=== PATIENT | female | born 1955 ===

== ENCOUNTER 2017-12-06 13:58 | Observation (INO) | payer BC ==
[2017-12-06 14:32] VITALS: RESP 18
--- NOTE | 2017-12-06 15:36 | ED PDOC ---
HPI: Abdomen Time Seen by Provider: 12/06/17 14:47 Chief Complaint (Nursing): Abdominal Pain Additional Complaint(s): 62 YO F w/ PMH of kidney stones presents to the ED with right flank pain. Patient was seen in [place] ER and had a CT abdomen and pelvis preformed which showed right sided hydronephrosis with a 6mm stone. She was not given a strainer on discharge. She followed up with Dr. Hugo outpatient and he provided her with a stainer and advised her to come to ER if symptoms are persistent or worsening. PMH: Kidney stones one year ago PSH: None Allergy: NKDA FH: None Past Medical History Reviewed: Historical Data, Nursing Documentation, Vital Signs Vital Signs: Last Vital Signs Temp 98.1 F 12/06/17 14:28 Pulse 86 12/06/17 14:28 Resp 18 12/06/17 14:28 BP 138/80 12/06/17 14:28 Pulse Ox 99 12/06/17 18:16 - Medical History PMH: Kidney Stones - Surgical History Surgical History: No Surg Hx - Family History Family History: States: No Known Family Hx - Home Medications Home Medications: Ambulatory Orders Medication Instructions Recorded Amoxicillin/Clavulanate [Augmentin 1 tab PO BID 12/06/17 875 MG-125 MG Tab] Tamsulosin [Flomax] 0.4 mg PO DAILY 12/06/17 oxyCODONE/Acetaminophen [Percocet 1 tab PO Q6 PRN 12/06/17 5/325 mg Tab] - Allergies Allergies/Adverse Reactions: Allergies Allergy/AdvReac Type Severity Reaction Status Date / Time No Known Allergies Allergy Verified 12/06/17 14:28 Review of Systems ROS Statement: Except As Marked, All Systems Reviewed And Found Negative Physical Exam - Reviewed Nursing Documentation Reviewed: Yes Vital Signs Reviewed: Yes - Physical Exam Appears: Positive for: No Acute Distress Head Exam: Positive for: NORMAL INSPECTION Skin: Positive for: Warm, Dry ENT: Positive for: Normal ENT Inspection Neck: Positive for: Normal Cardiovascular/Chest: Positive for: Regular Rate, Rhythm Respiratory: Positive for: Normal Breath Sounds. Negative for: Rales, Rhonchi, Wheezing Gastrointestinal/Abdominal: Positive for: Normal Exam, Bowel Sounds, Soft Back: Positive for: R CVA Tenderness Extremity: Negative for: Tenderness - Laboratory Results Result Diagrams: 12/06/17 15:25 12/06/17 15:25 - ECG O2 Sat by Pulse Oximetry: 99 Medical Decision Making Medical Decision Making: CBC CMP PT/INR Chest X ray - Spoke with Dr Jason Hugo:Will order KUB bladder and call him with the results. - CT abdomen shows severe hydronephrosis with stone 4 x 5 mm - Patient is to remain NPO and is scheduled for surgery today at [address] Villegas Disposition - Clinical Impression Clinical Impression: Urolithiasis, Hydronephrosis - Patient ED Disposition Is Patient to be Admitted: Yes - Disposition Disposition: Transfer of Care Disposition Time: 18:26 Condition: STABLE Print Language: SINHALA - POA Present On Arrival: None
[2017-12-06 15:38] LABS: BASO # 0.1 K/uL (0.0-0.2); BASO % 0.5 % (0.0-2.0); EOS # 0.1 K/uL (0.0-0.7); EOS % 0.6 % (0.0-4.0); HEMOGLOBIN 11.6 g/dL (12.0-16.0); LYMPH # 1.1 K/uL (1.0-4.3); LYMPH % 11.5 % (20.0-40.0); MEAN CELL VOLUME 88.2 fl (81.0-99.0); MEAN CORPUSCULAR HEMOGLOBIN 29.7 pg (27.0-31.0); MEAN CORPUSCULAR HGB CONC 33.7 g/dL (33.0-37.0); MEAN PLATELET VOLUME 7.4 fl (7.2-11.7); MONO # 0.5 K/uL (0.0-0.8); MONO % 5.2 % (0.0-10.0); NEUT # 8.2 K/uL (1.8-7.0); NEUT % 82.2 % (50.0-75.0); RBC 3.91 Mil/uL (3.80-5.20)
[2017-12-06 15:49] LABS: PROTHROMBIN TIME 11.5 Seconds (9.8-13.1)
[2017-12-06 15:50] LABS: ALB/GLOB RATIO 1.2 (1.0-2.1); ALBUMIN 3.9 g/dL (3.5-5.0); ALT/SGPT 74 U/L (9-52); AST/SGOT 48 U/L (14-36); BLOOD UREA NITROGEN 8 mg/dl (7-17); CALCIUM 10.5 mg/dL (8.4-10.2); GFR AFRICAN-AMERICAN > 60; GFR NON-AFRICAN AMERICAN > 60
--- NOTE | 2017-12-06 15:50 | ED PDOC ---
- Laboratory Results Result Diagrams: 12/06/17 15:25 12/06/17 15:25 - ECG O2 Sat by Pulse Oximetry: 99 Pulse Ox Interpretation: Normal - CT Scan/US ct Other Rad Studies (CT/US): Read By Radiologist Other Rad Interpretation: stone with obstruction - Progress ED Course And Treament: 1500: Stable. AAOx3. Took over care from Dr. Castañeda. Fu on Dr. Dailey. Pt. with renal stone. 1545: Dr. Dailey wants a KUB. 1614: Stable. AAOx3. Dr. Dailey will admit and take to OR on his service today. Will emperic rocephine to cover. Disposition Counseled Patient/Family Regarding: Studies Performed, Diagnosis - Clinical Impression Clinical Impression: Urolithiasis, Hydronephrosis - POA Present On Arrival: None - Disposition Disposition: Hospitalized as Observation Patient Disposition Time: 18:16 Condition: FAIR
--- NOTE | 2017-12-06 16:12 | RAD ---
HISTORY: pain COMPARISON: No prior. FINDINGS: BOWEL: Normal. No obstruction. No free air. BONES: Normal. OTHER FINDINGS: None. IMPRESSION: No active disease.
--- NOTE | 2017-12-06 16:13 | RAD ---
HISTORY: pre op COMPARISON: No prior. FINDINGS: LUNGS: No active pulmonary disease. PLEURA: No significant pleural effusion identified, no pneumothorax apparent. CARDIOVASCULAR: Normal. OSSEOUS STRUCTURES: No significant abnormalities. VISUALIZED UPPER ABDOMEN: Normal. OTHER FINDINGS: None. IMPRESSION: No active disease.
[2017-12-06 17:11] LABS: SQUAMOUS EPITHIAL 1 /hpf (0-5); URINE BACTERIA OCC (<OCC); URINE BILIRUBIN NEGATIVE (NEGATIVE); URINE BLOOD MODERATE (NEGATIVE); URINE CLARITY CLEAR (Clear); URINE COLOR STRAW (YELLOW); URINE GLUCOSE (UA) NEG (Normal); URINE LEUKOCYTE ESTERASE NEG Leu/uL (Negative); URINE PROTEIN NEGATIVE (NEGATIVE); URINE UROBILINOGEN 0.2-1.0 mg/dL (0.2-1.0)
--- NOTE | 2017-12-06 17:51 | CT ---
PROCEDURE: CT Abdomen and Pelvis without intravenous contrast HISTORY: Unspecified abdominal pain. COMPARISON: None. TECHNIQUE: Unenhanced study. Neither oral nor intravenous contrast administered. Radiation dose: Total exam DLP = 305.46 mGy-cm. This CT exam was performed using one or more of the following dose reduction techniques: Automated exposure control, adjustment of the mA and/or kV according to patient size, and/or use of iterative reconstruction technique. FINDINGS: LOWER THORAX: Unremarkable. LIVER: Unremarkable. No gross lesion or ductal dilatation. GALLBLADDER AND BILE DUCTS: Unremarkable. PANCREAS: Unremarkable. No gross lesion or ductal dilatation. SPLEEN: Unremarkable. ADRENALS: Unremarkable. No mass. KIDNEYS AND URETERS: Obstructing proximal right ureteral calculus 4 x 5 mm. Severe hydronephrosis, edematous right kidney and perinephric stranding without urinoma. At the site of the ureteral calculus there is periureteral stranding and edema. VASCULATURE: Unremarkable. No aortic aneurysm. BOWEL: Unremarkable. No obstruction. No gross mural thickening. APPENDIX: Unremarkable. Normal appendix. PERITONEUM: Unremarkable. No free fluid. No free air. LYMPH NODES: Unremarkable. No enlarged lymph nodes. BLADDER: Unremarkable. REPRODUCTIVE: Unremarkable. BONES: No acute fracture. OTHER FINDINGS: None. IMPRESSION: Unilateral, right hydronephrosis and an edematous right kidney related to 4 x 5 mm proximal right ureteral obstructing calculus.
[2017-12-06] MEDS ORDERED: cefTRIAXone (Rocephin) 1 gm Inj IV STA (18:13)
[2017-12-06] MEDS ORDERED: cefTRIAXone (Rocephin) 1 gm Inj ONE ×2 (18:46→19:53)
[2017-12-06] MEDS ORDERED: Iohexol 300 100 ML IJ ONE (19:53)
[2017-12-06] MEDS ORDERED: Iohexol 300 10 ML ONE (19:53)
[2017-12-06] MEDS ORDERED: Liquid Adhesive TOP ONE (19:54)
[2017-12-06] MEDS ORDERED: Propofol 10 mg/ml Inj (20 ML) ONE (19:58)
[2017-12-06] MEDS ORDERED: Succinylcholine 200 mg/10 ml Inj IV ONE (19:59)
[2017-12-06] MEDS ORDERED: Lidocaine 4% (Laryng-O-Jet) Kit MM ONE (19:59)
[2017-12-06] MEDS ORDERED: Etomidate 20 mg/10ml Inj IV ONE (20:02)
[2017-12-06] MEDS ORDERED: Midazolam 2 MG/2 ML VIAL ONE (20:04)
[2017-12-06] MEDS ORDERED: Sodium Chloride 0.9% 500 ML IV ONE (20:04)
[2017-12-06] MEDS ORDERED: Dexamethasone 4 mg/1 ml ONE (20:11)
[2017-12-06] MEDS ORDERED: Lactated Ringer's 1,000 ML IV ONE (20:40)
[2017-12-06] MEDS ORDERED: HYDROmorphone 0.5 mg/0.5 ml ISec IVP PRN (20:48)
[2017-12-06] MEDS ORDERED: Lactated Ringer's 1,000 ML IV SCH (21:00)
--- NOTE | 2017-12-06 23:12 | OP ---
PROCEDURE DATE: 12/06/2017 PREOPERATIVE DIAGNOSIS: Acute right renal colic with obstructing right ureteral calculus. PROCEDURE PERFORMED ON THE PATIENT: Cystoscopy, right ureteroscopy, stone basketing, and double J-stent placement. DESCRIPTION OF PROCEDURE: Under general anesthesia, the patient was placed on the operating room table in the dorsal lithotomy position, the area of the groin was draped and prepped in a sterile manner. Using a short ureteroscope, I entered into the bladder atraumatically, identified the right ureteral orifice and I advanced the ureteroscope over a floppy-tip guidewire to the level of the obstructing calculus, which was in the area of the proximal ureter. At this time, I left one guidewire in as a safety and I then went back again with the second guidewire and deployed a double-Helical basket, I engaged the stone, removed the stone completely, and then went back with that safety wire in place and over that wire, I placed a 6-Chinese multi-link double-J stent under fluoroscopy and it was placed into good position. The patient then was taken from the operating room in good condition. There was no blood loss noted. The stone was sent for chemical analysis. Valentina Dailey MD
[2017-12-06 23:34] VITALS: BP 120/72; PULSE 64; TEMP 97.9; O2SAT 98
--- NOTE | 2017-12-07 14:59 | CARD ---
APPROVED REPORT EKG Measurement Heart [id number] <Conclusion> Normal sinus rhythm Nonspecific T wave abnormality Abnormal ECG
--- NOTE | 2017-12-09 09:12 | RAD ---
PROCEDURE: Intraoperative Fluoroscopy. HISTORY: CYSTO FINDINGS: Fluoroscopic assistance was provided for urological procedure. Please refer to the operative report from [facility]. 0.1 minute of fluoro time was utilized.
== END 2017-12-07 00:10 | disposition home or self-care (01) ==
LOC: H.ER 13:58 → H.ERHOLD 18:10 → H.MEDSURG1 21:36
PROVIDERS: ADMIT Urology; ATTEND Urology
DX: N13.2 Hydronephrosis with renal and ureteral calculous obstruction (principal); N23 Unspecified renal colic; Z87.442 Personal history of urinary calculi
CPT/HCPCS: 52332; 52352; 71045; 74018; 74176; 80053; 81003; 85025; 85610; 85730; 93005; 96374; 99283; G0378; J0330; J0696; J1100; J1885; J2001; J2250; J2405; J2704; J2765; J3010; J7040; J7120